=== PATIENT | female | born 1970 | race Caucasian/White ===

== ENCOUNTER 2021-09-26 11:03 | Emergency (ER) | payer OTHER ==
[~2021-09-26] VITALS: Ht 165.1 cm; Wt 72.6 kg
[2021-09-26 11:16] VITALS: BP 139/85
--- NOTE | 2021-09-26 11:26 | NUR ---
PT AMBULATED TO BATHROOM WITH STEADY GAIT
--- NOTE | 2021-09-26 11:42 | NUR ---
51 Y/O FEMALE BIB SELF C/O ACHING PAIN [place], 8/10, MID UPPER BACK BACK 8/10, CHEST PAIN RADIATING TO THE RIGHT ARM X3DAYS, DENIES ANY MEDICATION FOR PAIN. PMH: DENIES NKA
[2021-09-26] MEDS ORDERED: KETOROLAC 30 MG/ML VIAL IM ONE (12:05)
[2021-09-26] MEDS ORDERED: LIDOCAINE 5% 1 EA PATCH TP SCH (12:05)
[2021-09-26 12:40] LABS: BASOPHILS % (AUTO) 0.6 % (0.0-2.0); EOSINOPHILS # (AUTO) 0.2 K/uL (0-0.4); EOSINOPHILS % (AUTO) 4.4 % (0.0-4.0); HEMATOCRIT 37.8 % (36-48); HEMOGLOBIN 12.3 g/dL (12.0-16.0); LYMPHOCYTES # (AUTO) 1.7 K/uL (2.5-16.5); MEAN CORPUSCULAR HEMOGLOBIN 28 pg (27-31); MEAN CORPUSCULAR HGB CONC 33 g/dL (33-37); MEAN CORPUSCULAR VOLUME 86.6 fL (80-94); MONOCYTES # (AUTO) 0.2 K/uL (0.8-1.0); NEUTROPHILS # (AUTO) 2.5 K/uL (1.8-7.7); PLATELET COUNT (AUTO) 180 K/uL (140-450); RED BLOOD CELL COUNT(AUTO) 4.36 MIL/uL (4.20-5.40); RED CELL DISTRIBUTION WIDTH 15.1 % (11.6-13.7); WHITE BLOOD COUNT (AUTO) 4.7 K/uL (4.8-10.8)
--- NOTE | 2021-09-26 12:42 | NUR ---
RAD AT BEDSIDE
[2021-09-26 12:55] LABS: ALBUMIN 4.2 g/dL (3.4-5.0); ANION GAP 11.9 (8-16); ASPARTATE AMINOTRANSFERASE 15 U/L (15-37); CARBON DIOXIDE 28.4 mmol/L (21-32); CHLORIDE 105 mmol/L (98-107); CREATININE 0.7 mg/dL (0.6-1.3); GFR ARICAN-AMERICAN 113 mL/min (>90); GLUCOSE 99 mg/dL (74-106); POTASSIUM 4.3 mmol/L (3.5-5.1); SODIUM SERUM 141 mmol/L (136-145); TOTAL BILIRUBIN 0.5 mg/dL (0.0-1.0); UREA NITROGEN, BLOOD 13 mg/dL (7-18)
[2021-09-26] MEDS ORDERED: DICL100G5 TP (13:39)
[2021-09-26] MEDS ORDERED: CYCL-654 PO (13:39)
[2021-09-26] MEDS ORDERED: IBUP-1842 PO (13:39)
[2021-09-26 13:55] VITALS: BP 132/81
--- NOTE | 2021-09-26 13:55 | NUR ---
Patient discharged with v/s stable. Written and verbal after care instructions ABOUT THORACIC STRAINgiven and explained. Patient alert, oriented and verbalized understanding of instructions. Ambulatory with steady gait. All questions addressed prior to discharge. ID band removed. Patient advised to follow up with PMD. Rx of CYCLOBENZAPRINE HCL, DICLOFENAC, MOTRIN given. Patient educated on indication of medication including possible reaction and side effects. Opportunity to ask questions provided and answered.
== END 2021-09-26 13:55 | disposition home or self-care (01) ==
LOC: MED 11:03
DX: S29.012A Strain of muscle and tendon of back wall of thorax, initial encounter (principal); X58.XXXA Exposure to other specified factors, initial encounter; Y93.89 Activity, other specified; Y92.89 Other specified places as the place of occurrence of the external cause; Y99.8 Other external cause status
CPT/HCPCS: 71045; 80053; 81025; 84484; 85025; 93005; 96372; 99285; J1885; Q0092